=== PATIENT | female | born 1965 | race African-American/Black ===

== ENCOUNTER 2024-12-19 00:04 | Emergency (ER) | payer OTHER ==
--- OUTSIDE RECORDS SUMMARY | 2024-12-19 00:08 | XMS REPORT | Continuity of Care Document ---
Author Name Unknown Address [address] [place] [address] [place] [id number] [place] [address] Address [address] [facility]. 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 Name Role Phone JOHN PAUL BROWN Attending Clinician Unavailable LAB90 Attending Clinician Unavailable MICHELLE HESTER Attending Clinician UnavailEVER Veras Attending Clinician Unavailable HARSH LLAMAS Attending Clinician Unavailabl e Payers Payer Name Policy Type Policy Number Effective Date Expirati on Date Source AETNA 2 [id number] 2023 00:00:00 AETNA [place] P[place] 5 [id number] 2022 00:00:00 [employer]ET[employer] HMO [id number] 2015 00:00:00 Problems Condition Name Condition Details Condition Category Status Onset Date Resolution Date Last Treatment Date Treating Clinician Comments Source Class 2 obesity due to excess calories without serious comorbidit y with body mass index (BMI) of 36.0 to 36.9 in adult Class 2 obesity due to excess calories without serious comorbidit y with body mass index (BMI) of 36.0 to 36.9 in adult Disease Active 06-22 00:00: 00 Mariola Combs - Externa l Dysuria Dysuria Disease Active 2023-05 0 00:00: 00 Mariola Carlosold - Externa l Well adult exam Well adult exam Disease Active 06-15 00:00: 00 Mariola Carlosold - Externa l Skin mole Skin mole Disease Active 06-15 00:00: 00 Mariola Carlosold - Externa l HTN (hypertens ion) HTN (hypertens ion) Disease Active 11-17 00:00: 00 Mariola Combs - Externa l Hyperlipid emia Hyperlipid emia Disease Active 11-17 00:00: 00 Mariola Combs - Externa l Obesity Obesity Disease Active 11-17 00:00: 00 Mariola Combs - Externa l Allergies, Adverse Reactions, Alerts Allergy Name Allergy Type Status Severity Reaction(s) Onset Date Inactive Date Treating Clinician Comments Source NO KNOWN ALLERGIE S Drug Class Active [facility] Social History Social Habit Start Date Stop Date Quantity Comments Source Gender identity Charlette Combs - External Sexual orientation Scott alexandre Garret - External History of tobacco use Passive smoker Mariola armstrong - External ASSERTION Not Mariola Combs - External History of Occupation Mariola Combs - External Alcoholic beverage intake 2024-06-22 00:00:00 2024-06-22 00:00:00 Ex-drinker (finding) Mariola Combs - External Cigarettes smoked current (pack per day) - Reported 2024-01-27 00:00:00 2024-01-27 00:00:00 Mariola Combs - External Cigarette pack-years 2024-01-27 00:00:00 2024-01-27 00:00:00 Mariola Combs - External Tobacco use and exposure 2024-01-27 00:00:00 2024-01-27 00:00:00 Smokeless tobacco non-user Mariola Combs - External History of Social function 2023-06-15 00:00:00 2023-06-15 00:00:00 Mariola Combs - External Alcohol intake 2023-06-15 00:00:00 2023-06-15 00:00:00 Ex-drinker (finding) Mariola Combs - External Education 2022-11-17 00:00:00 2022-11-17 00:00:00 16 Mariola Combs - External Sex 2022-09-22 10:37:46 2022-09-22 10:37:46 Female (finding) Mariola Combs - External Sex assigned at 1965 00:00:00 1965 00:00:00 Mariola Seybold - External Smoking Status Start Date Stop Date Source Ex-smoker 2024-01-27 00:00:00 2024-01-27 00:00:00 Scott alexandre Garret Silvestre Medications Ordered Medication Name Filled Medication Name Start Date Stop Date Current Medication? Ordering Clinician Indication Dosage Frequency Signature (SIG) Comments Components Source Nystatin does not apply Powder 06-22 09:33: 42 Yes by does not apply route Mariola monteiro Triamterene -HCTZ 37.5-25 MG oral Tablet 06-13 00:00: 00 Yes [id number] 1{tbl} QD Take 1 tablet by mouth daily. Mariola monteiro Lisinopril 20 MG oral Tablet 06-13 00:00: 00 Yes [id number] 20mg QD Take 1 tablet (20 mg total) by mouth daily. Mariola monteiro Atorvastati n Calcium 10 MG oral Tablet 06-13 00:00: 00 Yes [id number] 10mg QD Take 1 tablet (10 mg total) by mouth nightly. Mariola monteiro TRIMETHOPRI M-SULFAMETH OXAZOLE (BACTRIM DS) 800-160 MG oral Tablet 2023-05 0-29 00:00: 00 03-16 05:59 :00 No [id number] 1{tbl} Q.5D Take 1 tablet by mouth 2 times daily for 7 days. Mariola monteiro Nystatin does not apply Powder 01-26 14:02: 47 Yes by does not apply route Mariola monteiro Lisinopril 20 MG oral Tablet 11-17 00:00: 00 Yes [id number] 20mg QD Take 1 tablet (20 mg total) by mouth daily. Mariola monteiro Triamterene -HCTZ 37.5-25 MG oral Tablet 11-17 00:00: 00 Yes [id number] 1{tbl} QD Take 1 tablet by mouth daily. Mariola monteiro Atorvastati n Calcium 10 MG oral Tablet -10 00:00: 00 Yes [id number] 10mg QD Take 1 tablet (10 mg total) by mouth nightly. Mariola monteiro Nystatin does not apply Powder 2-05 09:56: 06 Yes by does not apply route Mariola monteiro Atorvastati n Calcium 10 MG oral Tablet 11-17 15:33: 08 11-17 00:00 :00 No Mariola monteiro Lisinopril 20 MG oral Tablet 11-17 15:33: 08 11-17 00:00 :00 No 20mg Take 1 tablet (20 mg total) by mouth daily Mariola monteiro Triamterene -HCTZ 37.5-25 MG oral Tablet 11-17 15:33: 08 11-17 00:00 :00 No 1{tbl} Take 1 tablet by mouth daily Mariola monteiro Nystatin does not apply Powder 11-17 15:22: 59 Yes by does not apply route Mariola monteiro Atorvastamichael n Calcium 10 MG oral Tablet 11-17 00:00: 00 Yes [id number] 10mg Take 1 tablet (10 mg total) by mouth nightly Mariola monteiro Lisinopril 20 MG oral Tablet 11-17 00:00: 00 Yes [id number] 20mg Take 1 tablet (20 mg total) by mouth daily Mariola monteiro Triamterene -HCTZ 37.5-25 MG oral Tablet 11-17 00:00: 00 Yes [id number] 1{tbl} Take 1 tablet by mouth daily Mariola monteiro Immunizations Ordered Immunization Name Filled Immunization Name Date Status Comments Source COVID-19 Vaccine(Pfizer)(12yrs +) Unknown Completed Mariola Silvestre Vital Signs Vital Name Observation Time Observation Value Comments S ource Systolic blood pressure 2024-06-22 16:01:00 118 mm[Hg] Mariola keenan - External Diastolic blood pressure 2024-06-22 16:01:00 72 mm[Hg] Mariola keenan - External Respiratory rate 2024-06-22 15:29:00 15 /min Mariola Seybold - External Body height 2024-06-22 15:29:00 172.7 cm Charlette ey Seybold - External Body weight 2024-06-22 15:29:00 108.41 kg Charlette ey Seybold - External BMI 2024-06-22 15:29:00 36.34 kg/m2 Charlette ey Seybold - External Oxygen saturation in Arterial blood by Pulse oximetry 2024-06-22 15:29:00 97 /min Mariola Seybo ld - External Heart rate 2024-06-22 15:29:00 71 /min Kelse y Seybold - External Body temperature 2024-06-22 15:29:00 35.78 Melissa Mariola Seybold - External Systolic blood pressure 2024-01-27 19:03:00 111 mm[Hg] Mariola Seybo ld - External Diastolic blood pressure 2024-01-27 19:03:00 68 mm[Hg] Mariola Seybo ld - External Heart rate 2024-01-27 19:03:00 65 /min Kelse y Seybold - External Respiratory rate 2024-01-27 19:03:00 16 /min Mariola Seybold - External Body height 2024-01-27 19:03:00 172.7 cm Charlette ey Seybold - External Body weight 2024-01-27 19:03:00 112.946 kg Charlette ey Seybold - External BMI 2024-01-27 19:03:00 37.86 kg/m2 Charlette ey Seybold - External Systolic blood pressure 2023-06-15 15:52:00 102 mm[Hg] Mariola Seybo ld - External Diastolic blood pressure 2023-06-15 15:52:00 62 mm[Hg] Mariola Seybo ld - External Heart rate 2023-06-15 15:52:00 71 /min Kelse y Seybold - External Body temperature 2023-06-15 15:52:00 36.33 Melissa Mariola Seybold - External Respiratory rate 2023-06-15 15:52:00 14 /min Mariola Seybold - External Body height 2023-06-15 15:52:00 170.2 cm Charlette ey Seybold - External Body weight 2023-06-15 15:52:00 109.77 kg Charlette schroeder Seybold - External BMI 2023-06-15 15:52:00 37.90 kg/m2 Charlette ey Seybold - External Systolic blood pressure 2022-11-17 20:16:00 114 mm[Hg] Mariola Carloso ld - External Diastolic blood pressure 2022-11-17 20:16:00 72 mm[Hg] Mariola Carloso ld - External Heart rate 2022-11-17 20:16:00 85 /min Pallavi y Sephanold - External Body temperature 2022-11-17 20:16:00 36.83 Melissa Mariola Combs - External Respiratory rate 2022-11-17 20:16:00 20 /min Mariola Combs - External Body height 2022-11-17 20:16:00 170.2 cm Charlette schroeder Seybold - External Body weight 2022-11-17 20:16:00 105.597 kg Charlette schroeder Seybold - External BMI 2022-11-17 20:16:00 36.46 kg/m2 Charlette schroeder Seybold - External Oxygen saturation in Arterial blood by Pulse oximetry 2022-11-17 20:16:00 97 /min Mariola Newton ld - External Encounters Start Date/Time End Date/Time Encounter Type Admission Type Attending [facility] Care Department Encounter ID Source 2024-07-12 00:00:00 2024-07-12 00:00:00 Outpatient JOHN PAUL BROWN [id number] Mariola Combs 2024-06-22 10:15:00 2024-06-22 10:15:00 Outpatient LAB90 MARIOLA ALLISON [id number] Mariola Combs 2024-06-22 09:30:00 2024-06-22 09:30:00 Outpatient MICHELLE HESTER [id number] Mariola Combs 2024-06-12 00:00:00 2024-06-12 00:00:00 Outpatient JOHN PAUL BROWN [id number] Mariola Combs 2024-05-10 00:00:00 2024-05-10 00:00:00 Outpatient JOHN PAUL BROWN [id number] Mariola Combs 2024-03-08 11:25:00 2024-03-08 11:25:00 Outpatient LAB90 MARIOLA ALLISON [id number] Mariola Pintoybjose l 2024-03-08 10:45:00 2024-03-08 10:45:00 Outpatient EVER REZA MARIOLA ALLISON [id number] Mariola Pintoybjose l 2024-02-22 10:40:00 2024-02-22 10:40:00 Outpatient MARIOLA ALLISON [id number] Mariola ybjose l 2024-02-22 10:35:00 2024-02-22 10:35:00 Outpatient MARIOLA ALLISON [id number] Mariola ybjose l 2024-02-22 00:00:00 2024-02-22 00:00:00 Outpatient MICHELLE HESTER MARIOLA ALLISON [id number] Mariola Pintoybjose l 2024-02-22 00:00:00 2024-02-22 00:00:00 Outpatient MICHELLE HESTER [facility] ALLISON [id number] [facility] 2024-01-27 14:45:00 2024-01-27 14:45:00 Outpatient HARSH LLAMAS MARIOLA ALLISON [id number] [facility] 2024-01-25 00:00:00 2024-01-25 00:00:00 Outpatient MICHELLE HESTER [facility]IOLA ALLISON [id number] [facility] 2024-01-12 10:20:00 2024-01-12 10:20:00 Outpatient [facility]OLA ALLISON [id number] [facility] 2023-12-25 00:00:00 2023-12-25 00:00:00 Outpatient [facility] PAUL BROWN [id number] [facility] 2023-11-25 00:00:00 2023-11-25 00:00:00 Outpatient [facility] PAUL BROWN [id number] [facility] 2023-11-16 00:00:00 2023-11-16 00:00:00 Outpatient [facility] PA[facility] BROWN [id number] [facility] 2023-10-30 10:45:00 2023-10-30 10:45:00 Outpatient HARSH LLAMAS MARIOLA ALLISON [id number] [facility] 2023-10-30 10:00:00 2023-10-30 10:00:00 Outpatient [facility] ALLISON [id number] [facility] 2023-07-28 00:00:00 2023-07-28 00:00:00 Outpatient MICHELLE HESTER MARIOLA ALLISON [id number] [facility] 2023-06-25 00:00:00 2023-06-25 00:00:00 Outpatient PREVARUN JOHN PAUL MARIOLA ALLISON [id number] [facility] 2023-06-24 00:00:00 2023-06-24 00:00:00 Outpatient MICHELLE HESTER MARIOLA ALLISON [id number] Mariola [facility] 2023-06-18 00:00:00 2023-06-18 00:00:00 Outpatient MICHELLE HESTER MARIOLA ALLISON [id number] Mariola [facility] 2023-06-17 00:00:00 2023-06-17 00:00:00 Outpatient MICHELLE HESTER [facility]OLA ALLISON [id number] [facility] 2023-06-17 00:00:00 2023-06-17 00:00:00 Outpatient MICHELLE HESTER MARIOLA ALLISON [id number] Mariola [facility] 2023-06-16 00:00:00 2023-06-16 00:00:00 Outpatient MICHELLE HESTER [facility]OLA ALLISON [id number] [facility] 2023-06-15 10:45:00 2023-06-15 10:45:00 Outpatient LABEzekiel MARIOLA ALLISON [id number] [facility] 2023-06-15 10:00:00 2023-06-15 10:00:00 Outpatient MICHELLE HESTER [facility]OLA ALLISON [id number] [facility] 2023-04-29 00:00:00 2023-04-29 00:00:00 Outpatient PREJOHN PAUL BOND [id number] [facility] 2023-04-20 08:15:00 2023-04-20 08:15:00 Outpatient JOHN PAUL BROWN [id number] [facility] 2022-11-17 15:30:00 2022-11-17 15:30:00 Outpatient JOHN PAUL BROWNSEY [id number] Mariola Combs 2022-10-23 13:30:00 2022-10-23 13:30:00 Outpatient [facility]SEY [id number] [facility] 2020-08-05 09:50:00 2020-08-05 09:50:00 Outpatient [facility] [id number] [facility] 2020-07-08 10:05:00 2020-07-08 10:05:00 Outpatient [facility] [id number] [facility] Notes Date/Time Note Provider Source 2024-06-22 09:33:43 Chief Complaint Patient presents with Physical Patient is fasting. No other issues to discuss Lisa Mclain MA [facility] 2024-01-27 14:02:29 Chief Complaint Patient presents with Well Woman Exam [facility] 2023-06-15 09:56:12 Chief Complaint Patient presents with Physical Patient is fasting. Mole Removal Mole on right eyelid. Lisa Mclain MA II [facility]
--- NOTE | 2024-12-19 00:20 | EDPHYS ---
Physician Documentation [facility] Name: Lake Marmolejo Age: 59 yrs Sex: Female : 1965 Arrival Date: 12/19/2024 Time: 00:04 Bed 14 Private MD: Kameron Nunes ED Physician Steven Lynn HPI: 12/19 00:32 This 59 yrs old Black Female presents to ER via Ambulatory with complaints of Arm Pain, kb Shoulder Pain, Left Side. 00:32 Pt is a 59 year old female who presents for pain to left shoulder that radiates down to kb right elbow for 5 days. States she thinks she slept wrong because the pain was present upon waking. Denies injury or trauma. Denies fall. . Historical: - Allergies: 00:15 No Known Allergies; jb4 - PMHx: 00:15 None; jb4 - PSHx: 00:15 None; jb4 - Immunization history:: Adult Immunizations up to date. - Infectious Disease History:: Denies. - Social history:: Smoking status: Reported history of juuling and/or vaping. ROS: 00:31 Constitutional: As per HPI kb Exam: 00:31 Constitutional: This is a well developed, well nourished patient who is awake, alert, kb and in no acute distress. Head/Face: Normocephalic, atraumatic. ENT: Moist Mucous membranes Cardiovascular: Regular rate Respiratory: Respirations even and unlabored. No increased work of breathing. Talking in full sentences Skin: Warm, dry with normal turgor. Normal color. Neuro: Awake and alert, GCS 15, oriented to person, place, time, and situation. 00:31 Musculoskeletal/extremity: Extremities: grossly normal except: noted in the anterior aspect of left shoulder and left elbow: pain, tenderness, ROM: intact in all extremities, Circulation is intact in all extremities. Sensation intact. Vital Signs: 00:13 BP 140 / 86; Pulse 66; Resp 16; Temp 96.8(TE); Pulse Ox 96% ; Weight 104.33 kg; Height jb4 5 ft. 7 in. (R); Pain 8/10; 00:29 BP 108 / 77; Pulse 79; Resp 18; Temp 98.1(O); Pulse Ox 100% on R/A; Weight 104.33 kg; tb4 Height 5 ft. 7 in. ; Pain 8/10; 00:29 Body Mass Index 36.02 (104.33 kg, 170.18 cm) tb4 00:13 Pain Scale: Adult jb4 00:29 Pain Scale: Adult tb4 MDM: 00:13 Medical Screening Exam initiated kb 00:31 Differential diagnosis: tendonitis, arthritis, strain. Data reviewed: vital signs, kb nurses notes. Test considered but Not performed: X-ray: xray considered but pt has no bony tenderness, no injury or trauma, full rom of arm. Historians other than the Patient: Spouse/Significant Other: spouse. Counseling: I had a detailed discussion with the patient and/or guardian regarding the historical points, exam findings, and any diagnostic results supporting the discharge/admit diagnosis, the need for outpatient follow up, a orthopedic surgeon, to return to the emergency department if symptoms worsen or persist or if there are any questions or concerns that arise at home. Administered Medications: 00:41 Drug: predniSONE PO 40 mg PO once Route: PO; tb4 00:57 Follow up: Response: No adverse reaction tb4 00:41 Drug: HYDROcodone-acetaminophen PO 5 mg-325 mg 1 tabs PO once Route: PO; tb4 00:57 Follow up: Response: No adverse reaction; Pain is decreased; RASS: Alert and Calm (0) tb4 00:41 Drug: Diazepam PO 2 mg PO once Route: PO; tb4 00:57 Follow up: Response: No adverse reaction; RASS: Alert and Calm (0) tb4 Disposition: 01:14 I was immediately available on-site in the Emergency Department for consultation in the ms3 care of the patient. Disposition Summary: 12/19/24 00:19 Discharge Ordered Notes: Location: Home kb Condition: Stable kb Diagnosis - Pain in left upper arm kb Followup: kb - With: Emergency Department - When: As needed - Reason: Worsening of condition Followup: kb - With: Private Physician - When: 2 - 3 days - Reason: Recheck today's complaints, Continuance of care, Re-evaluation by your physician Discharge Instructions: - Discharge Summary Sheet kb - Musculoskeletal Pain kb Forms: - Medication Reconciliation Form kb - Antibiotic Education kb - Prescription Opioid Use kb - Patient Portal Instructions kb - Leadership Thank You Letter kb Prescriptions: - Ibuprofen 600 mg Oral Tablet - take 1 tablet ORAL route every 6 hours As needed take with food; 30 tablet; kb Refills: 0, Product Selection Permitted - Prednisone 20 mg Oral Tablet - take 1 tablet ORAL route once daily for 5 days; 5 tablet; Refills: 0, Product kb Selection Permitted - orphenadrine citrate 100 mg Oral Tablet Sustained Release - take 1 tablet ORAL route 2 times per day As needed; 20 tablet; Refills: 0, kb Product Selection Permitted Signatures: Ciara Conrad, JORDON-C TRIALS MANAGER-Fly Britt, RN RN jb4 Steven Lynn DO DO ms3 Nathaly Harding, RN RN tb4
--- NOTE | 2024-12-19 00:20 | ER ---
Nurse's Notes [facility] Name: Lake Marmolejo Age: 59 yrs Sex: Female : 1965 Arrival Date: 12/19/2024 Time: 00:04 Bed 14 Private MD: Kameron Nunes Diagnosis: Pain in left upper arm Presentation: 12/19 00:13 Chief complaint: Patient states: My left arm and shoulder are hurting and has been for jb4 the past 4-5 days. Coronavirus screen: At this time, the client does not indicate any symptoms associated with coronavirus-19. Ebola Screen: No symptoms or risks identified at this time. Initial Sepsis Screen: Does the patient meet any 2 criteria? No. Patient's initial sepsis screen is negative. Does the patient have a suspected source of infection? No. Patient's initial sepsis screen is negative. Risk Assessment: Do you want to hurt yourself or someone else? Patient reports no desire to harm self or others. Onset of symptoms was December 15, 2024. Transition of care: patient was not received from another setting of care. 00:13 Method Of Arrival: Ambulatory jb4 00:13 Acuity: DORIAN 4 jb4 Historical: - Allergies: 00:15 No Known Allergies; jb4 - PMHx: 00:15 None; jb4 - PSHx: 00:15 None; jb4 - Immunization history:: Adult Immunizations up to date. - Infectious Disease History:: Denies. - Social history:: Smoking status: Reported history of juuling and/or vaping. Screenin:29 [facility] ED Fall Risk Assessment (Adult) History of falling in the last 3 months, tb4 including since admission No falls in past 3 months (0 pts) Confusion or Disorientation No (0 pts) Intoxicated or Sedated No (0 pts) Impaired Gait No (0 pts) Mobility Assist Device Used No (0 pt) Altered Elimination No (0 pt) Score/Fall Risk Level 0 - 2 = Low Risk Oriented to surroundings, Maintained a safe environment. Abuse screen: Denies threats or abuse. Nutritional screening: No deficits noted. Tuberculosis screening: No symptoms or risk factors identified. Assessment: 00:29 Reassessment: See triage note. General: Appears in no apparent distress. Behavior is tb4 calm, cooperative. Pain: Complains of pain in posterior aspect of left shoulder Pain radiates to left tricep Pain currently is 8 out of 10 on a pain scale. Quality of pain is described as aching, shooting, Pain began gradually, four to five days ago Is continuous, Alleviated by nothing. Neuro: No deficits noted. Level of Consciousness is awake, alert, obeys commands, Oriented to person, place, time, situation, Biomedical Instrument Technician are equal bilaterally Moves all extremities. Full function Gait is steady, Speech is normal, Facial symmetry appears normal. Cardiovascular: No deficits noted. Respiratory: No deficits noted. Airway is patent Trachea midline Respiratory effort is even, unlabored, Respiratory pattern is regular, symmetrical. GI: No deficits noted. No signs and/or symptoms were reported involving the gastrointestinal system. : No signs and/or symptoms were reported regarding the genitourinary system. EENT: No signs and/or symptoms were reported regarding the EENT system. Derm: No signs and/or symptoms reported regarding the dermatologic system. 00:29 Musculoskeletal: Circulation, motion, and sensation intact. Capillary refill < 3 tb4 seconds, is brisk, in bilateral fingers. Vital Signs: 00:13 BP 140 / 86; Pulse 66; Resp 16; Temp 96.8(TE); Pulse Ox 96% ; Weight 104.33 kg; Height jb4 5 ft. 7 in. (R); Pain 8/10; 00:29 BP 108 / 77; Pulse 79; Resp 18; Temp 98.1(O); Pulse Ox 100% on R/A; Weight 104.33 kg; tb4 Height 5 ft. 7 in. ; Pain 8/10; 00:29 Body Mass Index 36.02 (104.33 kg, 170.18 cm) tb4 00:13 Pain Scale: Adult jb4 00:29 Pain Scale: Adult tb4 ED Course: 00:08 Patient arrived in ED. jj6 00:08 Kameron Nunes DO is Private Physician. jj6 00:13 Ciara Conrad [facility]-C [facility] kb 00:13 Steven Lynn DO is Attending Physician. kb 00:15 Triage completed. jb4 00:15 Arm band placed on right wrist. jb4 00:29 Patient has correct armband on for positive identification. Bed in low position. Call tb4 light in reach. Side rails up X 1. Adult w/ patient. Client placed on continuous cardiac and pulse oximetry monitoring. NIBP monitoring applied. Door closed. Lights dimmed. 00:29 No provider procedures requiring assistance completed. Patient did not have IV access tb4 during this emergency room visit. 01:00 Provided Education on: Take medication as prescribed. tb4 Administered Medications: 00:41 Drug: predniSONE PO 40 mg PO once Route: PO; tb4 00:57 Follow up: Response: No adverse reaction tb4 00:41 Drug: HYDROcodone-acetaminophen PO 5 mg-325 mg 1 tabs PO once Route: PO; tb4 00:57 Follow up: Response: No adverse reaction; Pain is decreased; RASS: Alert and Calm (0) tb4 00:41 Drug: Diazepam PO 2 mg PO once Route: PO; tb4 00:57 Follow up: Response: No adverse reaction; RASS: Alert and Calm (0) tb4 Medication: 00:29 VIS not applicable for this client. tb4 Outcome: 00:19 Discharge ordered by . judah 00:59 Discharged to home ambulatory, with family, tb4 00:59 Condition: stable 00:59 Discharge instructions given to patient, Instructed on discharge instructions, follow up and referral plans. Demonstrated understanding of instructions, follow-up care, medications, Prescriptions given X 3, 01:01 Patient left the ED. tb4 Signatures: Ciara Conrad FNP-C FNP-Fly Britt, RN RN jb4 Chanel Alj6 Nathaly Harding, RN RN tb4
[2024-12-19] MEDS ORDERED: HYDROCODONE/APAP 5/325 MG TAB ONE (00:28)
[2024-12-19] MEDS ORDERED: DIAZEPAM 2 MG TABLET ONE (00:28)
[2024-12-19] MEDS ORDERED: predniSONE 20 MG TAB ONE (00:28)
[2024-12-19 01:07] VITALS: BP 108/77; TEMP 98.1; O2SAT 100
== END 2024-12-19 01:01 | disposition home or self-care (01) ==
LOC: ER 00:04
DX: M79.622 Pain in left upper arm (principal)
CPT/HCPCS: 99284; J7512